=== PATIENT | male | born 1975 ===

== ENCOUNTER 2022-10-26 15:15 | Emergency (ER) | payer SELFPAY ==
[~2022-10-26] VITALS: Ht 185.4 cm; Wt 68.2 kg
[2022-10-26 15:23] VITALS: TEMP 98.2
[2022-10-26 16:26] LABS: BASO % 0.3 % (0.0-2.0); EOS % 0.2 % (0.0-4.0); GRAN # 7.8 K/mm3 (1.4-6.5); GRAN % 74.6 % (42.2-75.2); HEMATOCRIT 46.9 % (42.0-52.0); HEMOGLOBIN 16.4 g/dl (13.5-18.0); LYMPH # 1.6 K/mm3 (1.2-3.4); LYMPH % 15.5 % (20.0-51.0); MEAN CELL VOLUME 88 fl (80.0-100.0); MEAN CORPUSCULAR HEMOGLOBIN 31 pg (27-31); MEAN CORPUSCULAR HGB CONC 35 g/dl (33.0-37.0); MEAN PLATELET VOLUME 9.3 fl (7.4-10.4); MONO # 0.9 K/mm3 (0.1-0.6); MONO % 9.1 % (1.7-9.3); PLATELET COUNT 294 K/mm3 (130-400); RED BLOOD COUNT 5.35 M/mm3 (4.20-5.60); REDCELL DISTRIBUTION WIDTH-CV 12.1 % (11.5-14.5)
[2022-10-26 16:36] LABS: TRICYCLIC ANTIDEPRESS URINE NEGATIVE
[2022-10-26 16:42] LABS: ALBUMIN 4.4 gm/dL (3.5-5.0); CALCIUM 9.7 mg/dL (8.4-10.2); PHOSPHOROUS 3.2 mg/dL (2.3-4.7); POTASSIUM 3.5 mmol/L (3.5-4.5)
[2022-10-26 19:00] VITALS: BP 140/94; PULSE 94
== END 2022-10-26 19:00 | disposition home or self-care (01) ==
LOC: COL.ER 15:15
PROVIDERS: Emergency Medicine
DX: M43.6 Torticollis (principal); E04.1 Nontoxic single thyroid nodule; R42 Dizziness and giddiness; R53.81 Other malaise; Z28.310 Unvaccinated for COVID-19
CPT/HCPCS: J7120; Q9967